=== PATIENT | male | born 1945 | race Caucasian/White ===

== ENCOUNTER 2024-01-28 18:58 | Observation (INO) ==
--- NOTE | 2024-01-28 19:50 | EKG ---
Test Reason : recent stroke/abd pain Blood Pressure : */* mmHG Vent. Rate : 65 BPM Atrial Rate : 65 BPM P-R Int : 196 ms QRS Dur : 82 ms QT Int : 406 ms P-R-T Axes : 30 36 58 degrees QTc Int : 422 ms Normal sinus rhythm Normal ECG No previous ECGs available Confirmed by Max Bateman MD ([id number]) on 01/30/2024 6:06:23 AM Referred By: Confirmed By: Max Bateman MD
[2024-01-28 20:10] LABS: BASOPHILS % (AUTO) 0.2 % (0.2-1.0); EOSINOPHILS % (AUTO) 0.3 % (0.9-2.9); HEMATOCRIT 43.8 % (42.0-54.0); HEMOGLOBIN 14.5 g/dL (13.5-18.0); LYMPHOCYTES # (AUTO) 1.8 X10^3/uL (1.3-2.9); LYMPHOCYTES % (AUTO) 12.7 % (21.0-51.0); MEAN CORPUSCULAR HEMOGLOBIN 29.8 pg (27.0-34.0); MEAN CORPUSCULAR VOLUME 90.2 fL (80.0-100.0); MEAN PLATELET VOLUME 8.9 fL (7.4-11.0); MONOCYTES # (AUTO) 1.1 x10^3/uL (0.3-0.8); MONOCYTES % (AUTO) 7.9 % (0.0-13.0); NEUTROPHILS # (AUTO) 11.4 x10^3/uL (2.2-4.8); NEUTROPHILS % (AUTO) 78.9 % (42.0-75.0); PLATELET COUNT 199 X10^3/uL (150.0-450.0); RED BLOOD COUNT 4.86 X10^6/uL (4.7-6.0); WHITE BLOOD COUNT 14.5 X10^3/uL (3.6-10.0)
[2024-01-28 20:13] LABS: INR 1.06 (0.8-1.3)
[2024-01-28 20:20] LABS: ALANINE AMINOTRANSFERASE 22 Units/L (12-78); ALBUMIN 3.7 g/dL (3.4-5.0); ALKALINE PHOSPHATASE 81 Units/L (46-116); ASPARTATE AMINO TRANSFERASE 19 Units/L (15-37); BLOOD UREA NITROGEN 21 mg/dL (7-18); CALCIUM 8.8 mg/dL (8.5-10.1); CARBON DIOXIDE 28.5 mmol/L (21-32); CHLORIDE 103 mmol/L (98-107); COR NA(FOR HYPERGLY) 138 mmol/L (136-145); CREATINE KINASE 73 Units/L (39-308); CREATININE 1.42 mg/dL (0.70-1.30); GLUCOSE 166 mg/dL (65-99); POTASSIUM 4.5 mmol/L (3.5-5.1); SODIUM 136 mmol/L (136-145); TOTAL PROTEIN 8.4 g/dL (6.4-8.2); eGFR NON BLACK RACES 51 (>60)
--- NOTE | 2024-01-28 20:51 | DR.WEAKNES ---
HPI <SEBASTIENJOVANI COLEEN Filed: 01/29/24 02:52> Time Seen Time Seen by Provider: 01/28/24 20:51 Primary Care Physician Primary Care Physician: SHAMA Complaints Chief Complaint:: C/O Weakness, Nausea with Difficulty Ambulating. Hx of Carotid Stenosis Self Treatment fo Chief Complaint: Went To ED Yesterday Source History Provided: Patient and Family Member Mode of Arrival Mode of Arrival: Wheelchair Timing Onset of Chief Complaint: 01/27/24 PMH <VAISHNAVIBRUCE COLEEN - Filed: 01/29/24 02:52> PMH Past Medical History: Yes Past Medical History: CVA Past Surgical History: No Family History History of Family Medical Conditions: Yes Family Medical History: [place], Coronary Artery Disease and Hypertension Social History Does patient currently use any type of tobacco product: No Type of Tobacco Use: None Infectious screening Have you traveled outside the country in the last 6 months?: No Isolation: Standard PE <SEBASTIENJOVANI COLEEN Filed: 01/29/24 02:52> Vital Signs Vitals: Vital Signs Temperature 97.8 F Pulse Rate 72 Pulse Rate 61 Pulse Rate 60 Pulse Rate 63 Pulse Rate 61 Pulse Rate 61 Pulse Rate 61 Pulse Rate 62 Pulse Rate 63 Pulse Rate 62 Pulse Rate 63 Pulse Rate 63 Pulse Rate 61 Pulse Rate 62 Pulse Rate 64 Pulse Rate 63 Pulse Rate 66 Pulse Rate 64 Pulse Rate 63 Pulse Rate 62 Pulse Rate 61 Pulse Rate 64 Pulse Rate 64 Pulse Rate 63 Pulse Rate 77 Pulse Rate 69 Pulse Rate 64 Pulse Rate 64 Pulse Rate 65 Pulse Rate 67 Pulse Rate 70 Pulse Rate 66 Pulse Rate 68 Respiratory Rate 21 Respiratory Rate 23 Respiratory Rate 19 Respiratory Rate 18 Respiratory Rate 18 Respiratory Rate 20 Respiratory Rate 16 Respiratory Rate 24 Respiratory Rate 20 Respiratory Rate 15 Respiratory Rate 19 Respiratory Rate 19 Respiratory Rate 16 Respiratory Rate 22 Respiratory Rate 16 Respiratory Rate 17 Respiratory Rate 16 Respiratory Rate 16 Respiratory Rate 30 Respiratory Rate 33 Respiratory Rate 25 Respiratory Rate 18 Respiratory Rate 27 Respiratory Rate 24 Respiratory Rate 26 Respiratory Rate 21 Respiratory Rate 24 Blood Pressure 162/78 Blood Pressure 156/74 Blood Pressure 146/70 Blood Pressure 188/88 Blood Pressure 170/79 Blood Pressure 185/79 Blood Pressure 166/74 Blood Pressure 166/74 Blood Pressure 166/74 Blood Pressure 166/74 Blood Pressure 183/86 Blood Pressure 179/81 Blood Pressure 179/80 Blood Pressure 195/81 Blood Pressure 168/77 Blood Pressure 166/79 O2 Sat by Pulse Oximetry 96 O2 Sat by Pulse Oximetry 97 O2 Sat by Pulse Oximetry 96 O2 Sat by Pulse Oximetry 98 O2 Sat by Pulse Oximetry 97 O2 Sat by Pulse Oximetry 97 O2 Sat by Pulse Oximetry 97 O2 Sat by Pulse Oximetry 98 <MAI YANEZ - Last Filed: 02/04/24 16:05> Vital Signs Vitals: Vital Signs Temperature 97.8 F Pulse Rate 72 Pulse Rate 61 Pulse Rate 60 Pulse Rate 63 Pulse Rate 61 Pulse Rate 61 Pulse Rate 61 Pulse Rate 62 Pulse Rate 63 Pulse Rate 62 Pulse Rate 63 Pulse Rate 63 Pulse Rate 61 Pulse Rate 62 Pulse Rate 64 Pulse Rate 63 Pulse Rate 66 Pulse Rate 64 Pulse Rate 63 Pulse Rate 62 Pulse Rate 61 Pulse Rate 64 Pulse Rate 64 Pulse Rate 63 Pulse Rate 77 Pulse Rate 69 Pulse Rate 64 Pulse Rate 64 Pulse Rate 65 Pulse Rate 67 Pulse Rate 70 Pulse Rate 66 Pulse Rate 68 Respiratory Rate 21 Respiratory Rate 23 Respiratory Rate 19 Respiratory Rate 18 Respiratory Rate 18 Respiratory Rate 20 Respiratory Rate 16 Respiratory Rate 24 Respiratory Rate 20 Respiratory Rate 15 Respiratory Rate 19 Respiratory Rate 19 Respiratory Rate 16 Respiratory Rate 22 Respiratory Rate 16 Respiratory Rate 17 Respiratory Rate 16 Respiratory Rate 16 Respiratory Rate 30 Respiratory Rate 33 Respiratory Rate 25 Respiratory Rate 18 Respiratory Rate 27 Respiratory Rate 24 Respiratory Rate 26 Respiratory Rate 21 Respiratory Rate 24 Blood Pressure 162/78 Blood Pressure 156/74 Blood Pressure 146/70 Blood Pressure 188/88 Blood Pressure 170/79 Blood Pressure 185/79 Blood Pressure 166/74 Blood Pressure 166/74 Blood Pressure 166/74 Blood Pressure 166/74 Blood Pressure 183/86 Blood Pressure 179/81 Blood Pressure 179/80 Blood Pressure 195/81 Blood Pressure 168/77 Blood Pressure 166/79 O2 Sat by Pulse Oximetry 96 O2 Sat by Pulse Oximetry 97 O2 Sat by Pulse Oximetry 96 O2 Sat by Pulse Oximetry 98 O2 Sat by Pulse Oximetry 97 O2 Sat by Pulse Oximetry 97 O2 Sat by Pulse Oximetry 97 O2 Sat by Pulse Oximetry 98 ROR <VALENTINE HORNE - Last Filed: 01/29/24 02:52> Labs Reviewed 01/31/24 04:54 01/31/24 04:54 Laboratory: WBC 14.5 X10^3/uL (3.6-10.0) H 01/28/24 20:00 RBC 4.86 X10^6/uL (4.7-6.0) 01/28/24 20:00 Hgb 14.5 g/dL (13.5-18.0) 01/28/24 20:00 Hct 43.8 % (42.0-54.0) 01/28/24 20:00 MCV 90.2 fL (80.0-100.0) 01/28/24 20:00 MCH 29.8 pg (27.0-34.0) 01/28/24 20:00 MCHC 33.0 g/dL (33.0-35.0) 01/28/24 20:00 RDW 14.0 % (11.6-16.5) 01/28/24 20:00 Plt Count 199 X10^3/uL (150.0-450.0) 01/28/24 20:00 MPV 8.9 fL (7.4-11.0) 01/28/24 20:00 Neut % (Auto) 78.9 % (42.0-75.0) H 01/28/24 20:00 Lymph % (Auto) 12.7 % (21.0-51.0) L 01/28/24 20:00 [place] % (Auto) 7.9 % (0.0-13.0) 01/28/24 20:00 Eos % (Auto) 0.3 % (0.9-2.9) L 01/28/24 20:00 Baso % (Auto) 0.2 % (0.2-1.0) 01/28/24 20:00 Neut # (Auto) 11.4 x10^3/uL (2.2-4.8) H 01/28/24 20:00 Lymph # (Auto) 1.8 X10^3/uL (1.3-2.9) 01/28/24 20:00 [place] # (Auto) 1.1 x10^3/uL (0.3-0.8) H 01/28/24 20:00 Eos # (Auto) 0.0 x10^3/uL (0.0-0.2) 01/28/24 20:00 Baso # (Auto) 0.0 X10^3/uL (0.0-0.1) 01/28/24 20:00 Absolute Nucleated RBC 0.1 /100WBC 01/28/24 20:00 PT 13.6 SECONDS (11.8-14.3) 01/28/24 20:00 INR Target Range - 01/28/24 20:00 INR 1.06 (0.8-1.3) 01/28/24 20:00 APTT 27.6 SECONDS (22.9-36.5) 01/28/24 20:00 PTT Comment - 01/28/24 20:00 D-Dimer 0.33 ug/ml (0.0-0.57) 01/28/24 20:00 Sodium 136 mmol/L (136-145) 01/28/24 20:00 Corrected Sodium 138 mmol/L (136-145) 01/28/24 20:00 Potassium 4.5 mmol/L (3.5-5.1) 01/28/24 20:00 Chloride 103 mmol/L (98-107) 01/28/24 20:00 Carbon Dioxide 28.5 mmol/L (21-32) 01/28/24 20:00 BUN 21 mg/dL (7-18) H 01/28/24 20:00 Creatinine 1.42 mg/dL (0.70-1.30) H 01/28/24 20:00 Est GFR (MDRD) Af Amer > 60 (>60) 01/28/24 20:00 Est GFR (MDRD) Non-Af 51 (>60) L 01/28/24 20:00 Glucose 166 mg/dL (65-99) H 01/28/24 20:00 Calcium 8.8 mg/dL (8.5-10.1) 01/28/24 20:00 Corrected Calcium TNP 01/28/24 20:00 Total Bilirubin 0.30 mg/dL (0.2-1.0) 01/28/24 20:00 AST 19 Units/L (15-37) 01/28/24 20:00 ALT 22 Units/L (12-78) 01/28/24 20:00 Alkaline Phosphatase 81 Units/L (46-116) 01/28/24 20:00 Creatine Kinase 73 Units/L (39-308) 01/28/24 20:00 Troponin I High Sens 8.3 ng/L (4.0-60.0) 01/28/24 20:00 B-Natriuretic Peptide 146 pg/mL (0-79) H 01/28/24 20:00 Total Protein 8.4 g/dL (6.4-8.2) H 01/28/24 20:00 Albumin 3.7 g/dL (3.4-5.0) 01/28/24 20:00 Globulin 4.7 g/dL (2.5-4.5) H 01/28/24 20:00 Albumin/Globulin Ratio 0.8 Ratio (1.1-2.1) L 01/28/24 20:00 Specimen Type Clean catch urine 01/28/24 22:52 Urine Color Yellow (YELLOW) 01/28/24 22:52 Urine Appearance Clear (CLEAR) 01/28/24 22:52 Urine pH 6.0 (5.0 - 8.0) 01/28/24 22:52 Ur Specific [place] 1.015 (1.000-1.030) 01/28/24 22:52 Urine Protein Negative (NEGATIVE) 01/28/24 22:52 Urine Glucose (UA) Negative (NEGATIVE) 01/28/24 22:52 Urine Ketones Negative (NEGATIVE) 01/28/24 22:52 Urine Blood Negative (NEGATIVE) 01/28/24 22:52 Urine Nitrite Negative (NEGATIVE) 01/28/24 22:52 Urine Bilirubin Negative (NEGATIVE) 01/28/24 22:52 Urine Urobilinogen Normal (NORMAL) 01/28/24 22:52 Ur Leukocyte Esterase 1+ (NEGATIVE) 01/28/24 22:52 Urine RBC None seen /HPF (0-3) 01/28/24 22:52 Urine WBC 0-2 /HPF (0-5) 01/28/24 22:52 Ur Squamous Epith Cells Rare /HPF (NEGATIVE) 01/28/24 22:52 Urine Bacteria Negative /HPF (NEGATIVE) 01/28/24 22:52 Ur Culture Indicated? No/not indicated 01/28/24 22:52 <MAI RENATA - Last Filed: 02/04/24 16:05> Labs Reviewed Laboratory: WBC 14.5 X10^3/uL (3.6-10.0) H 01/28/24 20:00 RBC 4.86 X10^6/uL (4.7-6.0) 01/28/24 20:00 Hgb 14.5 g/dL (13.5-18.0) 01/28/24 20:00 Hct 43.8 % (42.0-54.0) 01/28/24 20:00 MCV 90.2 fL (80.0-100.0) 01/28/24 20:00 MCH 29.8 pg (27.0-34.0) 01/28/24 20:00 MCHC 33.0 g/dL (33.0-35.0) 01/28/24 20:00 RDW 14.0 % (11.6-16.5) 01/28/24 20:00 Plt Count 199 X10^3/uL (150.0-450.0) 01/28/24 20:00 MPV 8.9 fL (7.4-11.0) 01/28/24 20:00 Neut % (Auto) 78.9 % (42.0-75.0) H 01/28/24 20:00 Lymph % (Auto) 12.7 % (21.0-51.0) L 01/28/24 20:00 [place] % (Auto) 7.9 % (0.0-13.0) 01/28/24 20:00 Eos % (Auto) 0.3 % (0.9-2.9) L 01/28/24 20:00 Baso % (Auto) 0.2 % (0.2-1.0) 01/28/24 20:00 Neut # (Auto) 11.4 x10^3/uL (2.2-4.8) H 01/28/24 20:00 Lymph # (Auto) 1.8 X10^3/uL (1.3-2.9) 01/28/24 20:00 [place] # (Auto) 1.1 x10^3/uL (0.3-0.8) H 01/28/24 20:00 Eos # (Auto) 0.0 x10^3/uL (0.0-0.2) 01/28/24 20:00 Baso # (Auto) 0.0 X10^3/uL (0.0-0.1) 01/28/24 20:00 Absolute Nucleated RBC 0.1 /100WBC 01/28/24 20:00 PT 13.6 SECONDS (11.8-14.3) 01/28/24 20:00 INR Target Range - 01/28/24 20:00 INR 1.06 (0.8-1.3) 01/28/24 20:00 APTT 27.6 SECONDS (22.9-36.5) 01/28/24 20:00 PTT Comment - 01/28/24 20:00 D-Dimer 0.33 ug/ml (0.0-0.57) 01/28/24 20:00 Sodium 136 mmol/L (136-145) 01/28/24 20:00 Corrected Sodium 138 mmol/L (136-145) 01/28/24 20:00 Potassium 4.5 mmol/L (3.5-5.1) 01/28/24 20:00 Chloride 103 mmol/L (98-107) 01/28/24 20:00 Carbon Dioxide 28.5 mmol/L (21-32) 01/28/24 20:00 BUN 21 mg/dL (7-18) H 01/28/24 20:00 Creatinine 1.42 mg/dL (0.70-1.30) H 01/28/24 20:00 Est GFR (MDRD) Af Amer > 60 (>60) 01/28/24 20:00 Est GFR (MDRD) Non-Af 51 (>60) L 01/28/24 20:00 Glucose 166 mg/dL (65-99) H 01/28/24 20:00 Calcium 8.8 mg/dL (8.5-10.1) 01/28/24 20:00 Corrected Calcium TNP 01/28/24 20:00 Total Bilirubin 0.30 mg/dL (0.2-1.0) 01/28/24 20:00 AST 19 Units/L (15-37) 01/28/24 20:00 ALT 22 Units/L (12-78) 01/28/24 20:00 Alkaline Phosphatase 81 Units/L (46-116) 01/28/24 20:00 Creatine Kinase 73 Units/L (39-308) 01/28/24 20:00 Troponin I High Sens 8.3 ng/L (4.0-60.0) 01/28/24 20:00 B-Natriuretic Peptide 146 pg/mL (0-79) H 01/28/24 20:00 Total Protein 8.4 g/dL (6.4-8.2) H 01/28/24 20:00 Albumin 3.7 g/dL (3.4-5.0) 01/28/24 20:00 Globulin 4.7 g/dL (2.5-4.5) H 01/28/24 20:00 Albumin/Globulin Ratio 0.8 Ratio (1.1-2.1) L 01/28/24 20:00 Specimen Type Clean catch urine 01/28/24 22:52 Urine Color Yellow (YELLOW) 01/28/24 22:52 Urine Appearance Clear (CLEAR) 01/28/24 22:52 Urine pH 6.0 (5.0 - 8.0) 01/28/24 22:52 Ur Specific [place] 1.015 (1.000-1.030) 01/28/24 22:52 Urine Protein Negative (NEGATIVE) 01/28/24 22:52 Urine Glucose (UA) Negative (NEGATIVE) 01/28/24 22:52 Urine Ketones Negative (NEGATIVE) 01/28/24 22:52 Urine Blood Negative (NEGATIVE) 01/28/24 22:52 Urine Nitrite Negative (NEGATIVE) 01/28/24 22:52 Urine Bilirubin Negative (NEGATIVE) 01/28/24 22:52 Urine Urobilinogen Normal (NORMAL) 01/28/24 22:52 Ur Leukocyte Esterase 1+ (NEGATIVE) 01/28/24 22:52 Urine RBC None seen /HPF (0-3) 01/28/24 22:52 Urine WBC 0-2 /HPF (0-5) 01/28/24 22:52 Ur Squamous Epith Cells Rare /HPF (NEGATIVE) 01/28/24 22:52 Urine Bacteria Negative /HPF (NEGATIVE) 01/28/24 22:52 Ur Culture Indicated? No/not indicated 01/28/24 22:52 Opioid <VALENTINE HORNE - Last Filed: 01/29/24 02:52> Opioid Risk Tool Total: 0 Total Score Risk Category: Low Risk Copyright: Ian ALTAMIRANO predicting aberrant behaviors <MAI YANEZ - Last Filed: 02/04/24 16:05> Opioid Risk Tool Total: 0 Total Score Risk Category: Low Risk Discharge Plan Diagnosis Discharge Problem: Weakness generalized, Nausea & vomiting, Acute dehydration Discharge Plan Patient Disposition: 09 ADMITTED INPATIENT Condition: Stable
[2024-01-28 23:05] LABS: BILIRUBIN,URINE NEGATIVE (NEGATIVE); BLOOD/HEMOGLOBIN,URINE NEGATIVE (NEGATIVE); GLUCOSE, URINE NEGATIVE (NEGATIVE); KETONES,URINE NEGATIVE (NEGATIVE); LEUKOCYTE ESTERASE ,URINE 1+ (NEGATIVE); NITRITES,URINE NEGATIVE (NEGATIVE); PROTEIN,URINE NEGATIVE (NEGATIVE); UROBILINOGEN,URINE NORMAL (NORMAL)
[2024-01-28 23:09] LABS: APPEARANCE,URINE CLEAR (CLEAR); COLOR,URINE YELLOW (YELLOW); RBC,URINE NONE SEEN /HPF (0-3)
[2024-01-28 23:10] LABS: BACTERIA,URINE NEGATIVE /HPF (NEGATIVE); SQUAMOUS EPITHELIAL CELL,UR RARE /HPF (NEGATIVE)
--- NOTE | 2024-01-29 01:16 | CT ---
EXAM:CT ABDOMEN AND PELVIS WITH CONTRASTHISTORY:C/O Weakness, Nausea with Difficulty Ambulating. ; CVACOMPARISON:NoneTECHNIQUE:Axial images were acquired of the abdomen and pelvis with IV contrast. Sagittal and coronal reformatted images were provided. All images were reviewed in a variety of windows and levels.RADIATION REDUCTION TECHNIQUE: Automated exposure control, adjustment of the mA and/or kV according to patient size, or iterative reconstruction techniques were used.FINDINGS:LOWER THORAX: The visualized lower lung zones demonstrate mild bibasilar subsegmental atelectasis. There are numerous calcifications in the mediastinal and hilar region indicative of old granulomatous disease. The heart size is within normal limits. There is no evidence of a pericardial effusion. Coronary artery and mitral annulus calcification.LIVER: No intrahepatic focal lesions are seen. No evidence of intrahepatic or extrahepatic duct dilation.GALLBLADDER: The gallbladder is unremarkable.SPLEEN: The spleen enhances homogenously and is unremarkable.PANCREAS: The pancreas enhances homogenously and is unremarkable.ADRENAL GLANDS: The adrenal glands enhance homogenously and are unremarkable.: The kidneys enhance homogenously. Their collecting system is of normal caliber.URINARY BLADDER: The urinary bladder is unremarkable. There are no soft tissue masses seen in the urinary bladder.VESSELS: The abdominal aorta is normal in size without evidence of aneurysm or dissection. The celiac artery, superior mesenteric artery, ka[place]ab renal arteries, and inferior mesenteric artery are patent.GI: Large hiatal hernia. Small bowel is unremarkable. There are no inflammatory changes seen in the right lower quadrant to suggest secondary signs of acute appendicitis. Normal appendix right lower quadrant.LYMPHNODES AND MESENTERY: There is no evidence of retroperitoneal lymphadenopathy. Prostate gland is mildly enlarged. There are small bilateral fat containing inguinal hernias.BONES: The visualized bones demonstrate degenerative changes. There are no concerning lytic or blastic lesions identified.IMPRESSION:Large hiatal hernia.Mild bibasilar subsegmental atelectasis.Evidence of prior granulomatous disease.Mild prostate gland hypertrophy.Small bilateral fat containing inguinal hernias.No acute abdominal or pelvic pathologyTHIS IS AN ELECTRONICALLY VERIFIED FINAL REPORT01/29/2024 1:13 AM - Electronically signed by Tc Braun MD
[2024-01-29] MEDS ORDERED: ZOFRAN INJ 4 MG VIAL IVP PRN (02:02)
[2024-01-29 03:15] VITALS: BMI 32.5
[2024-01-29] MEDS: PEPCID 20 MG VIAL 20 MG in NS 50 ML IV 50 ML IV SCH (03:17)
[2024-01-29] MEDS: NS 1,000 ML IV 1,000 ML IV SCH (03:21)
[2024-01-29 05:29] LABS: BASOPHILS % (AUTO) 0.3 % (0.2-1.0); EOSINOPHILS # (AUTO) 0.2 x10^3/uL (0.0-0.2); EOSINOPHILS % (AUTO) 1.9 % (0.9-2.9); HEMATOCRIT 41.5 % (42.0-54.0); LYMPHOCYTES # (AUTO) 2.8 X10^3/uL (1.3-2.9); LYMPHOCYTES % (AUTO) 21.7 % (21.0-51.0); MEAN CORPUSCULAR HGB CONC 33.6 g/dL (33.0-35.0); MEAN CORPUSCULAR VOLUME 89.1 fL (80.0-100.0); MEAN PLATELET VOLUME 9.8 fL (7.4-11.0); MONOCYTES # (AUTO) 1.1 x10^3/uL (0.3-0.8); NEUTROPHILS # (AUTO) 8.5 x10^3/uL (2.2-4.8); NEUTROPHILS % (AUTO) 67.1 % (42.0-75.0); PLATELET COUNT 121 X10^3/uL (150.0-450.0); RED BLOOD COUNT 4.66 X10^6/uL (4.7-6.0); WHITE BLOOD COUNT 12.7 X10^3/uL (3.6-10.0)
[2024-01-29 05:37] LABS: ALANINE AMINOTRANSFERASE 18 Units/L (12-78); ALBUMIN 3.1 g/dL (3.4-5.0); ALKALINE PHOSPHATASE 66 Units/L (46-116); ASPARTATE AMINO TRANSFERASE 28 Units/L (15-37); BLOOD UREA NITROGEN 19 mg/dL (7-18); CALCIUM 8.4 mg/dL (8.5-10.1); CHLORIDE 104 mmol/L (98-107); COR CA(FOR HYPOALB) 9.1 mg/dL (8.5-10.1); COR NA(FOR HYPERGLY) 141 mmol/L (136-145); CREATININE 1.23 mg/dL (0.70-1.30); GLUCOSE 122 mg/dL (65-99); MAGNESIUM 1.9 mg/dL (2.0-2.9); POTASSIUM 4.5 mmol/L (3.5-5.1); SODIUM 140 mmol/L (136-145); eGFR NON BLACK RACES > 60 (>60)
[2024-01-29] MEDS ORDERED: CONSULT PHARMACY - POTASSIUM & MAGNESIUM XX SCH (07:00)
--- NOTE | 2024-01-29 08:03 | RAD ---
EXAM:CHEST, 1 VIEWHISTORY:C/O Weakness, Nausea with Difficulty Ambulating. Hx of Carotid Stenosis;COMPARISON:No relevant prior studies were available for comparison at the time of interpretation.TECHNIQUE:CHEST, 1 VIEWFINDINGS:Chest:Lines and tubes: Cardiac leads overlie the chest.Mediastinum: Cardiomegaly.Pulmonary vessels: No pulmonary vascular congestion.Lung patterson: No suspicious airspace opacity.Pleura: No effusion. No pneumothorax.Bones and soft tissues: No acute osseous or soft tissue abnormality.IMPRESSION:1. Cardiomegaly of uncertain etiologyTHIS IS AN ELECTRONICALLY VERIFIED FINAL REPORT01/29/2024 8:00 AM - Electronically signed by Jose E Cordero MD
[2024-01-29] MEDS: MAG-OX TAB PO SCH (08:42)
[2024-01-29] MEDS: SYNTHROID 50 mcg TAB PO SCH (08:42)
[2024-01-29] MEDS: CRESTOR TAB 10 MG PO SCH (08:42)
[2024-01-29] MEDS: PLAVIX PO SCH (08:43)
[2024-01-29] MEDS: NORVASC TAB 5 MG PO SCH (08:43)
[2024-01-29] MEDS ORDERED: VIT C E ZN COPPR LUTEIN ZEAXAN PO SCH (09:00)
[2024-01-29] MEDS ORDERED: [UNRECOGNIZED DRUG - OTHER] PO SCH (09:00)
[2024-01-29] MEDS: LOVENOX INJ 40 MG SYR SC SCH (10:51)
--- NOTE | 2024-01-29 17:22 | DR.H&P ---
H&P History & Physical for Day of: H&P Date: 01/28/24 Chief Complaint Chief Complaint: WEAKNESS, SOB History of Present Illness History of Present Illness: PT IS 78 WM, ER ADMISSION AFTER PRESENTING WITH CO DIFFUSE WEAKNESS AND SOB. PT CO NAUSE AND ABDOMINAL PAIN. PT REPORTS CONSTIPATION RECENTLY AND POOR APPETITE. PT MARCI ANY VISIBLE BLOOD IN STOOL. PT REPORT HE HAD A CVA ABOUT ONE WEEK AGO AND WAS SEEN AT [facility] IN [place]. PT REPORTS HE IS ON BP MEDICATION AND PLAVIX AND HAD BEEN TAKING MEDICATION PRESCRIBED. PT DENIES ANY CHEST PAIN BUT CO WEAKNESS AND SOB WORSE ON EXERTION. PT ADMITTED FOR TREATMENT AND EVALUATION OF ACUTE ILLNESS. Past Medical History Past Medical History: CVA Family History Family Medical History: Cancer and [place] Social History Does patient currently use any type of tobacco product: No Type of Tobacco Use: None Does any household member use tobacco: No Alcohol Use: None Drug Use: None Medications Home Medications: Home Medications Medication Instructions Recorded Confirmed Type amlodipine 5 mg tablet 5 mg PO DAILY 01/29/24 01/29/24 History aspirin 81 mg tablet,delayed 81 mg PO DAILY 01/29/24 01/29/24 History release clopidogrel 75 mg tablet (Plavix) 75 mg PO DAILY 01/29/24 01/29/24 History diclofenac sodium 75 mg 75 mg PO DAILY PRN 01/29/24 01/29/24 History tablet,delayed release hydroxyzine HCl 25 mg tablet 25 mg PO TID PRN 01/29/24 01/29/24 History levothyroxine 50 mcg capsule 50 mcg PO AC 01/29/24 01/29/24 History loratadine 10 mg tablet 10 mg PO DAILY 01/29/24 01/29/24 History rosuvastatin 10 mg tablet 10 mg PO DAILY 01/29/24 01/29/24 History vit C 250 mg-vit E 90 mg-zinc 40 1 cap PO DAILY 01/29/24 01/29/24 History mg-copper 1 [id number] capsule (PreserVision AREDS-2) Allergies Allergies Allergy/AdvReac Type Severity Reaction Status Date / Time No Known Allergies Allergy Verified 01/28/24 19:39 Labs 01/29/24 04:15 01/29/24 04:15 Labs: Laboratory WBC 12.7 X10^3/uL (3.6-10.0) H 01/29/24 04:15 RBC 4.66 X10^6/uL (4.7-6.0) L 01/29/24 04:15 Hgb 14.0 g/dL (13.5-18.0) 01/29/24 04:15 Hct 41.5 % (42.0-54.0) L 01/29/24 04:15 MCV 89.1 fL (80.0-100.0) 01/29/24 04:15 MCH 30.0 pg (27.0-34.0) 01/29/24 04:15 MCHC 33.6 g/dL (33.0-35.0) 01/29/24 04:15 RDW 14.0 % (11.6-16.5) 01/29/24 04:15 Plt Count 121 X10^3/uL (150.0-450.0) L 01/29/24 04:15 MPV 9.8 fL (7.4-11.0) 01/29/24 04:15 Neut % (Auto) 67.1 % (42.0-75.0) 01/29/24 04:15 Lymph % (Auto) 21.7 % (21.0-51.0) 01/29/24 04:15 [place] % (Auto) 9.0 % (0.0-13.0) 01/29/24 04:15 Eos % (Auto) 1.9 % (0.9-2.9) 01/29/24 04:15 Baso % (Auto) 0.3 % (0.2-1.0) 01/29/24 04:15 Neut # (Auto) 8.5 x10^3/uL (2.2-4.8) H 01/29/24 04:15 Lymph # (Auto) 2.8 X10^3/uL (1.3-2.9) 01/29/24 04:15 [place] # (Auto) 1.1 x10^3/uL (0.3-0.8) H 01/29/24 04:15 Eos # (Auto) 0.2 x10^3/uL (0.0-0.2) 01/29/24 04:15 Baso # (Auto) 0.0 X10^3/uL (0.0-0.1) 01/29/24 04:15 Absolute Nucleated RBC 0.2 /100WBC 01/29/24 04:15 PT 13.6 SECONDS (11.8-14.3) 01/28/24 20:00 INR Target Range - 01/28/24 20:00 INR 1.06 (0.8-1.3) 01/28/24 20:00 APTT 27.6 SECONDS (22.9-36.5) 01/28/24 20:00 PTT Comment - 01/28/24 20:00 D-Dimer 0.33 ug/ml (0.0-0.57) 01/28/24 20:00 Sodium 140 mmol/L (136-145) 01/29/24 04:15 Corrected Sodium 141 mmol/L (136-145) 01/29/24 04:15 Potassium 4.5 mmol/L (3.5-5.1) 01/29/24 04:15 Chloride 104 mmol/L (98-107) 01/29/24 04:15 Carbon Dioxide 26.0 mmol/L (21-32) 01/29/24 04:15 BUN 19 mg/dL (7-18) H 01/29/24 04:15 Creatinine 1.23 mg/dL (0.70-1.30) 01/29/24 04:15 Est GFR (MDRD) Af Amer > 60 (>60) 01/29/24 04:15 Est GFR (MDRD) Non-Af > 60 (>60) 01/29/24 04:15 Glucose 122 mg/dL (65-99) H 01/29/24 04:15 Calcium 8.4 mg/dL (8.5-10.1) L 01/29/24 04:15 Corrected Calcium 9.1 mg/dL (8.5-10.1) 01/29/24 04:15 Magnesium 1.9 mg/dL (2.0-2.9) L 01/29/24 04:15 Total Bilirubin 0.50 mg/dL (0.2-1.0) 01/29/24 04:15 AST 28 Units/L (15-37) 01/29/24 04:15 ALT 18 Units/L (12-78) 01/29/24 04:15 Alkaline Phosphatase 66 Units/L (46-116) 01/29/24 04:15 Creatine Kinase 73 Units/L (39-308) 01/28/24 20:00 Troponin I High Sens 8.3 ng/L (4.0-60.0) 01/28/24 20:00 B-Natriuretic Peptide 146 pg/mL (0-79) H 01/28/24 20:00 Total Protein 7.0 g/dL (6.4-8.2) 01/29/24 04:15 Albumin 3.1 g/dL (3.4-5.0) L 01/29/24 04:15 Globulin 3.9 g/dL (2.5-4.5) 01/29/24 04:15 Albumin/Globulin Ratio 0.8 Ratio (1.1-2.1) L 01/29/24 04:15 Specimen Type Clean catch urine 01/28/24 22:52 Urine Color Yellow (YELLOW) 01/28/24 22:52 Urine Appearance Clear (CLEAR) 01/28/24 22:52 Urine pH 6.0 (5.0 - 8.0) 01/28/24 22:52 Ur Specific [place] 1.015 (1.000-1.030) 01/28/24 22:52 Urine Protein Negative (NEGATIVE) 01/28/24 22:52 Urine Glucose (UA) Negative (NEGATIVE) 01/28/24 22:52 Urine Ketones Negative (NEGATIVE) 01/28/24 22:52 Urine Blood Negative (NEGATIVE) 01/28/24 22:52 Urine Nitrite Negative (NEGATIVE) 01/28/24 22:52 Urine Bilirubin Negative (NEGATIVE) 01/28/24 22:52 Urine Urobilinogen Normal (NORMAL) 01/28/24 22:52 Ur Leukocyte Esterase 1+ (NEGATIVE) 01/28/24 22:52 Urine RBC None seen /HPF (0-3) 01/28/24 22:52 Urine WBC 0-2 /HPF (0-5) 01/28/24 22:52 Ur Squamous Epith Cells Rare /HPF (NEGATIVE) 01/28/24 22:52 Urine Bacteria Negative /HPF (NEGATIVE) 01/28/24 22:52 Ur Culture Indicated? No/not indicated 01/28/24 22:52 Review of Systems Constitutional: Weakness and Malaise Eyes: No Symptoms Reported ENT: No Symptoms Reported Respiratory: SOB with Excertion Cardiovascular: No Symptoms Reported Gastrointestinal: Nausea, Abdominal Pain and Constipation Genitourinary: No Symptoms Reported Musculoskeletal: Back Pain Skin: No Symptoms Reported Neurological: Weakness (MILD DIFFUSE) Physical Exam Vital Signs: Vital Signs Temperature 98.3 F Pulse Rate 61 Pulse Rate 67 Pulse Rate 73 Pulse Rate 64 Pulse Rate 63 Pulse Rate 57 Pulse Rate 58 Pulse Rate 63 Pulse Rate 62 Pulse Rate 59 Pulse Rate 66 Pulse Rate 60 Pulse Rate 59 Pulse Rate 60 Pulse Rate 61 Pulse Rate 66 Pulse Rate 60 Pulse Rate 58 Pulse Rate 60 Pulse Rate 64 Pulse Rate 60 Pulse Rate 59 Pulse Rate 62 Pulse Rate 57 Pulse Rate 57 Pulse Rate 57 Pulse Rate 67 Pulse Rate 60 Respiratory Rate 15 Respiratory Rate 18 Respiratory Rate 38 Respiratory Rate 16 Respiratory Rate 13 Respiratory Rate 12 Respiratory Rate 13 Respiratory Rate 13 Respiratory Rate 14 Respiratory Rate 13 Respiratory Rate 20 Respiratory Rate 13 Respiratory Rate 15 Respiratory Rate 17 Respiratory Rate 18 Respiratory Rate 27 Respiratory Rate 19 Respiratory Rate 14 Respiratory Rate 20 Respiratory Rate 22 Respiratory Rate 19 Respiratory Rate 18 Respiratory Rate 22 Respiratory Rate 14 Respiratory Rate 12 Respiratory Rate 14 Respiratory Rate 30 Respiratory Rate 13 Blood Pressure 161/70 Blood Pressure 159/72 O2 Sat by Pulse Oximetry 97 O2 Sat by Pulse Oximetry 98 O2 Sat by Pulse Oximetry 95 O2 Sat by Pulse Oximetry 97 O2 Sat by Pulse Oximetry 95 O2 Sat by Pulse Oximetry 96 O2 Sat by Pulse Oximetry 95 O2 Sat by Pulse Oximetry 97 O2 Sat by Pulse Oximetry 96 O2 Sat by Pulse Oximetry 96 O2 Sat by Pulse Oximetry 96 O2 Sat by Pulse Oximetry 96 O2 Sat by Pulse Oximetry 96 O2 Sat by Pulse Oximetry 97 O2 Sat by Pulse Oximetry 98 O2 Sat by Pulse Oximetry 97 O2 Sat by Pulse Oximetry 97 O2 Sat by Pulse Oximetry 97 O2 Sat by Pulse Oximetry 97 O2 Sat by Pulse Oximetry 98 O2 Sat by Pulse Oximetry 97 O2 Sat by Pulse Oximetry 97 O2 Sat by Pulse Oximetry 97 O2 Sat by Pulse Oximetry 96 O2 Sat by Pulse Oximetry 97 O2 Sat by Pulse Oximetry 97 O2 Sat by Pulse Oximetry 96 O2 Sat by Pulse Oximetry 98 Oriented: Normal Eyes: Normal Nose: Normal Throat: Dry Respiratory: Diminished Throughout Cardiovascular: Normal Auscultation: Bowel Sounds: Decreased Tenderness: Epigastric and Mild Musculoskeletal: Motor Deficit Psychiatric: Normal Mood Description: Calm Speech Pattern: Appropriate and Slurred (MILDLY SLURRED, DUE TO MISSING DENTURES/TEETH) Assessment/Plan (1) Weakness generalized: Narrative Support Text: IV HYDRATION, CT ABD PELVIS ON ADMISSION VERIFY HOME MEDICATION CXR ON ADMISSION BP CONTROL, CE AND EKG ON ADMISSION PHYSICAL THERAPY CONSULT Status: Acute (2) Nausea & vomiting: Status: Acute (3) Acute dehydration: Status: Acute (4) Hyperlipidemia: Status: Acute (5) History of CVA (cerebrovascular accident): Status: Acute
[2024-01-30 05:03] LABS: BASOPHILS # (AUTO) 0.1 X10^3/uL (0.0-0.1); EOSINOPHILS # (AUTO) 0.4 x10^3/uL (0.0-0.2); EOSINOPHILS % (AUTO) 5.2 % (0.9-2.9); HEMATOCRIT 39.3 % (42.0-54.0); HEMOGLOBIN 13.1 g/dL (13.5-18.0); LYMPHOCYTES # (AUTO) 2.5 X10^3/uL (1.3-2.9); LYMPHOCYTES % (AUTO) 31.5 % (21.0-51.0); MEAN CORPUSCULAR HGB CONC 33.4 g/dL (33.0-35.0); MEAN CORPUSCULAR VOLUME 89.9 fL (80.0-100.0); MEAN PLATELET VOLUME 9.4 fL (7.4-11.0); MONOCYTES % (AUTO) 12.5 % (0.0-13.0); NEUTROPHILS % (AUTO) 49.8 % (42.0-75.0); PLATELET COUNT 181 X10^3/uL (150.0-450.0); RED BLOOD COUNT 4.37 X10^6/uL (4.7-6.0); RED CELL DISTRIBUTION WIDTH 14.2 % (11.6-16.5)
[2024-01-30 05:10] LABS: ALANINE AMINOTRANSFERASE 21 Units/L (12-78); ALKALINE PHOSPHATASE 72 Units/L (46-116); ASPARTATE AMINO TRANSFERASE 22 Units/L (15-37); BLOOD UREA NITROGEN 19 mg/dL (7-18); CALCIUM 8.1 mg/dL (8.5-10.1); CARBON DIOXIDE 30.4 mmol/L (21-32); CHLORIDE 105 mmol/L (98-107); CHOL/HDL RATIO 2.9 (0.0-5.0); CHOLESTEROL 115 mg/dL (0-200); COR CA(FOR HYPOALB) 8.9 mg/dL (8.5-10.1); COR NA(FOR HYPERGLY) 142 mmol/L (136-145); CREATININE 1.29 mg/dL (0.70-1.30); GLUCOSE 123 mg/dL (65-99); HDL CHOLESTEROL 39 mg/dL (40-60); SODIUM 141 mmol/L (136-145); TOTAL PROTEIN 6.9 g/dL (6.4-8.2); TRIGLYCERIDES 131 mg/dL (0-150); eGFR NON BLACK RACES 57 (>60)
--- NOTE | 2024-01-30 07:29 | RAD ---
EXAM:CHEST, 1 VIEWHISTORY:Shortness of breathCOMPARISON:01/28/2024FINDINGS:The trachea is midline. The cardiac silhouette is enlarged with a tortuous thoracic aorta . The lungs are clear without focal infiltrate or effusion. The bony thorax is unremarkable.IMPRESSION:No acute cardiopulmonary disease.THIS IS AN ELECTRONICALLY VERIFIED FINAL REPORT01/30/2024 7:26 AM - Electronically signed by Mariano Kirkland MD
[2024-01-30] MEDS: LASIX IVP ONE (12:30)
[2024-01-30] MEDS: LASIX ONE (13:50)
--- NOTE | 2024-01-30 14:03 | CT ---
EXAM: BRAIN W/O CON HISTORY: ams; CVA, HTN COMPARISON: MRI brain 01/16/2024 TECHNIQUE: Multiple CT axial images of the brain were obtained without IV contrast. Coronal and sagittal images were reconstructed. Dose reduction techniques included Automated Exposure Control (AEC) and adjustme nt of mA and kV. FINDINGS: Low-density in the medial left thalamus correlates with the ischemic areas seen on the MRI. Low-dens ity area in the medial right occipital lobe correlates with the acute ischemia seen on MRI. There is a new area of low-density in the anterior superior left cerebellar hemisphere which was not present previously. This may be a new infarct. It measures about 2.5 cm. This lies adjacent to an o ld infarct in the left cerebellar hemisphere. There is an old infarct in the inferior right occipital lobe. There is no hemorrhage, mass, or midline shift. Cerebellar tonsils are at an appropriate level. No fluid in the sinuses or mucosal thickening to suggest sinusitis. There is no mastoid effusion. IMPRESSION: 1. New findings suggesting left cerebellar acute infarct 2. Usual evolution of previously identified infarcts in the medial right occipital lobe and left thal amus 3. No hemorrhage or significant mass effect THIS IS AN ELECTRONICALLY VERIFIED FINAL REPORT 01/30/2024 1:43 PM - Electronically signed by aDvi Kuhn MD
[2024-01-30] MEDS ORDERED: ZADITOR EYE DROPS EACHEYE PRN (14:08)
--- NOTE | 2024-01-30 22:57 | CT ---
EXAM: CAROTID CTA HISTORY: AMS; AMS, HTN, HX CVA COMPARISON: None. TECHNIQUE: Following the intravenous administration of iodinated contrast, spiral CT imaging was performed throu gh the neck and axial, coronal, and sagittal CT images were generated. Multi planar 3D MIP images wer e also generated. FINDINGS: Aortic arch measures 3.4 cm in diameter. There is a bovine origin. There is no disease at the origi ns of the great vessels. Right carotid: Heavy calcified plaque in the carotid bulb and proximal ICA. This causes a proximally a 48% stenosis. There is no poststenotic dilation. There is no ulceration. Left carotid: Heterogeneous plaque in the carotid bulb and proximal ICA but no flow-limiting stenosis and ulceration. Left vertebral artery: No disease proximally. There is a area focal calcified plaque prior to entry into the C7 vascular foramen but no flow-limiting stenosis. The vertebral artery is otherwise normal . The intracranial portion of the vertebral artery is normal and the basilar artery is normal. Ther e appears to be some retrograde filling of the small and feeble right vertebral artery: Right vertebral artery: No flow proximally. Retrograde filling from the basilar. Intracranially: VIV, left MCA, and visible THERAPEUTIC ASSISTANT are grossly normal. There is some low-grade narrowing in the horizontal segment of the right MCA. Proximal branch of the right MCA is also feeble. IMPRESSION: 1. A proximally 48% stenosis in the right carotid bulb and ICA. 2. 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 3. Poorly defined area of narrowing in the horizontal segment of the right MCA and the anterior branc h of the right MCA. THIS IS AN ELECTRONICALLY VERIFIED FINAL REPORT 01/30/2024 10:54 PM - Electronically signed by Shravan Martinez MD
[2024-01-31 05:26] LABS: BASOPHILS # (AUTO) 0.1 X10^3/uL (0.0-0.1); BASOPHILS % (AUTO) 0.6 % (0.2-1.0); EOSINOPHILS # (AUTO) 0.5 x10^3/uL (0.0-0.2); HEMATOCRIT 41.5 % (42.0-54.0); LYMPHOCYTES # (AUTO) 2.7 X10^3/uL (1.3-2.9); LYMPHOCYTES % (AUTO) 27.1 % (21.0-51.0); MEAN CORPUSCULAR HGB CONC 33.6 g/dL (33.0-35.0); MEAN CORPUSCULAR VOLUME 89.2 fL (80.0-100.0); MONOCYTES # (AUTO) 1.2 x10^3/uL (0.3-0.8); MONOCYTES % (AUTO) 11.8 % (0.0-13.0); NEUTROPHILS # (AUTO) 5.5 x10^3/uL (2.2-4.8); NEUTROPHILS % (AUTO) 55.5 % (42.0-75.0); PLATELET COUNT 195 X10^3/uL (150.0-450.0); RED BLOOD COUNT 4.66 X10^6/uL (4.7-6.0); RED CELL DISTRIBUTION WIDTH 14.1 % (11.6-16.5)
[2024-01-31 05:36] LABS: ALANINE AMINOTRANSFERASE 27 Units/L (12-78); ALBUMIN 3.1 g/dL (3.4-5.0); ALKALINE PHOSPHATASE 74 Units/L (46-116); ASPARTATE AMINO TRANSFERASE 23 Units/L (15-37); BLOOD UREA NITROGEN 16 mg/dL (7-18); CALCIUM 8.3 mg/dL (8.5-10.1); CARBON DIOXIDE 32.4 mmol/L (21-32); CHLORIDE 103 mmol/L (98-107); COR NA(FOR HYPERGLY) 140 mmol/L (136-145); CREATININE 1.32 mg/dL (0.70-1.30); GLUCOSE 121 mg/dL (65-99); POTASSIUM 3.9 mmol/L (3.5-5.1); SODIUM 139 mmol/L (136-145); TOTAL PROTEIN 7.2 g/dL (6.4-8.2); eGFR NON BLACK RACES 55 (>60)
[2024-01-31] MEDS: ASPIRIN EC 81 MG PO SCH (09:44)
[2024-01-31] MEDS: ARTIFICIAL TEARS DROPS AFFEYE PRN (09:47)
[2024-01-31 14:35] VITALS: BP 182/84; PULSE 63; RESP 16; TEMP 98.3; O2SAT 97
--- NOTE | 2024-02-04 16:43 | PCM.PROG ---
Progress Note Progress Note for Day of Date of Exam: 01/30/24 Subjective Subjective: Patient is a 78 year old white male patient who was an ER admission after presenting on the evening of 01/28/24 with complaints of diffuse weakness, shortness of breath, nausea and abdominal pain. He reported that he had a CVA about one week ago and was seen at [facility] ER. Workup included a CT of abdomen and pelvis that showed Large hiatal hernia, Mild bibasilar subsegmental atelectasis, Evidence of prior granulomatous disease, Mild prostate gland hypertrophy, Small bilateral fat containing inguinal hernias, and no acute abdominal or pelvic pathology. Initial labs: wbc 8.0, hgb 13.1, bun 16/creatinine 1.32, BNP elevated at 146. We obtained records from [facility] where he had an echocardiogram on 01/17/24 with EF of 65-70%.This morning he had a chest xray that showed cardiomegaly. AM labs: wbc 8.0, hgb 13.1, bun 19/creatinine 1.29. Past Medical Family Social History Allergies: Allergies No Known Allergies Allergy (Verified 01/28/24 19:39) Physical Exam Oriented: Normal Eyes: Normal Nose: Normal Throat: Dry Respiratory: Diminished Cardiovascular: Normal Auscultation: Bowel Sounds: Decreased Tenderness: Epigastric and Mild Musculoskeletal: Motor Deficit Psychiatric: Normal Mood Description: Calm Speech Pattern: Clear Laboratory and Diagnostics 01/31/24 04:54 01/31/24 04:54 Labs: 01/29/24 17:35 Urine,Clean Catch Urine Culture - Final Laboratory WBC 10.0 X10^3/uL (3.6-10.0) 01/31/24 04:54 RBC 4.66 X10^6/uL (4.7-6.0) L 01/31/24 04:54 Hgb 14.0 g/dL (13.5-18.0) 01/31/24 04:54 Hct 41.5 % (42.0-54.0) L 01/31/24 04:54 MCV 89.2 fL (80.0-100.0) 01/31/24 04:54 MCH 30.0 pg (27.0-34.0) 01/31/24 04:54 MCHC 33.6 g/dL (33.0-35.0) 01/31/24 04:54 RDW 14.1 % (11.6-16.5) 01/31/24 04:54 Plt Count 195 X10^3/uL (150.0-450.0) 01/31/24 04:54 MPV 9.0 fL (7.4-11.0) 01/31/24 04:54 Neut % (Auto) 55.5 % (42.0-75.0) 01/31/24 04:54 Lymph % (Auto) 27.1 % (21.0-51.0) 01/31/24 04:54 [place] % (Auto) 11.8 % (0.0-13.0) 01/31/24 04:54 Eos % (Auto) 5.0 % (0.9-2.9) H 01/31/24 04:54 Baso % (Auto) 0.6 % (0.2-1.0) 01/31/24 04:54 Neut # (Auto) 5.5 x10^3/uL (2.2-4.8) H 01/31/24 04:54 Lymph # (Auto) 2.7 X10^3/uL (1.3-2.9) 01/31/24 04:54 [place] # (Auto) 1.2 x10^3/uL (0.3-0.8) H 01/31/24 04:54 Eos # (Auto) 0.5 x10^3/uL (0.0-0.2) H 01/31/24 04:54 Baso # (Auto) 0.1 X10^3/uL (0.0-0.1) 01/31/24 04:54 Absolute Nucleated RBC 0.0 /100WBC 01/31/24 04:54 PT 13.6 SECONDS (11.8-14.3) 01/28/24 20:00 INR Target Range - 01/28/24 20:00 INR 1.06 (0.8-1.3) 01/28/24 20:00 APTT 27.6 SECONDS (22.9-36.5) 01/28/24 20:00 PTT Comment - 01/28/24 20:00 D-Dimer 0.33 ug/ml (0.0-0.57) 01/28/24 20:00 Sodium 139 mmol/L (136-145) 01/31/24 04:54 Corrected Sodium 140 mmol/L (136-145) 01/31/24 04:54 Potassium 3.9 mmol/L (3.5-5.1) 01/31/24 04:54 Chloride 103 mmol/L (98-107) 01/31/24 04:54 Carbon Dioxide 32.4 mmol/L (21-32) H 01/31/24 04:54 BUN 16 mg/dL (7-18) 01/31/24 04:54 Creatinine 1.32 mg/dL (0.70-1.30) H 01/31/24 04:54 Est GFR (MDRD) Af Amer > 60 (>60) 01/31/24 04:54 Est GFR (MDRD) Non-Af 55 (>60) L 01/31/24 04:54 Glucose 121 mg/dL (65-99) H 01/31/24 04:54 Calcium 8.3 mg/dL (8.5-10.1) L 01/31/24 04:54 Corrected Calcium 9.0 mg/dL (8.5-10.1) 01/31/24 04:54 Magnesium 2.0 mg/dL (2.0-2.9) 01/30/24 04:23 Total Bilirubin 0.30 mg/dL (0.2-1.0) 01/31/24 04:54 AST 23 Units/L (15-37) 01/31/24 04:54 ALT 27 Units/L (12-78) 01/31/24 04:54 Alkaline Phosphatase 74 Units/L (46-116) 01/31/24 04:54 Creatine Kinase 73 Units/L (39-308) 01/28/24 20:00 Troponin I High Sens 8.3 ng/L (4.0-60.0) 01/28/24 20:00 B-Natriuretic Peptide 146 pg/mL (0-79) H 01/28/24 20:00 Total Protein 7.2 g/dL (6.4-8.2) 01/31/24 04:54 Albumin 3.1 g/dL (3.4-5.0) L 01/31/24 04:54 Globulin 4.1 g/dL (2.5-4.5) 01/31/24 04:54 Albumin/Globulin Ratio 0.8 Ratio (1.1-2.1) L 01/31/24 04:54 Triglycerides 131 mg/dL (0-150) 01/30/24 04:23 Cholesterol 115 mg/dL (0-200) 01/30/24 04:23 LDL Cholesterol, Calc 50 mg/dL (0-100) 01/30/24 04:23 HDL Cholesterol 39 mg/dL (40-60) L 01/30/24 04:23 Cholesterol/HDL Ratio 2.9 (0.0-5.0) 01/30/24 04:23 Specimen Type Clean catch urine 01/28/24 22:52 Urine Color Yellow (YELLOW) 01/28/24 22:52 Urine Appearance Clear (CLEAR) 01/28/24 22:52 Urine pH 6.0 (5.0 - 8.0) 01/28/24 22:52 Ur Specific [place] 1.015 (1.000-1.030) 01/28/24 22:52 Urine Protein Negative (NEGATIVE) 01/28/24 22:52 Urine Glucose (UA) Negative (NEGATIVE) 01/28/24 22:52 Urine Ketones Negative (NEGATIVE) 01/28/24 22:52 Urine Blood Negative (NEGATIVE) 01/28/24 22:52 Urine Nitrite Negative (NEGATIVE) 01/28/24 22:52 Urine Bilirubin Negative (NEGATIVE) 01/28/24 22:52 Urine Urobilinogen Normal (NORMAL) 01/28/24 22:52 Ur Leukocyte Esterase 1+ (NEGATIVE) 01/28/24 22:52 Urine RBC None seen /HPF (0-3) 01/28/24 22:52 Urine WBC 0-2 /HPF (0-5) 01/28/24 22:52 Ur Squamous Epith Cells Rare /HPF (NEGATIVE) 01/28/24 22:52 Urine Bacteria Negative /HPF (NEGATIVE) 01/28/24 22:52 Ur Culture Indicated? No/not indicated 01/28/24 22:52 Plan (1) Weakness generalized: Status: Acute Plan: start IV lasix, obtain CT head, CTA carotids. (2) Nausea & vomiting: Status: Acute (3) Acute dehydration: Status: Acute (4) Hyperlipidemia: Status: Acute (5) History of CVA (cerebrovascular accident): Status: Acute
== END 2024-01-31 14:30 | disposition home health service (06) ==
LOC: ER 18:58 → ICU 18:58
PROVIDERS: ADMIT Internal Medicine; ATTEND Internal Medicine
DX: Z79.01 Long term (current) use of anticoagulants; E86.0 Dehydration; N40.0 Benign prostatic hyperplasia without lower urinary tract symptoms; R10.84 Generalized abdominal pain; R11.2 Nausea with vomiting, unspecified; R06.02 Shortness of breath; K59.09 Other constipation; Z86.73 Personal history of transient ischemic attack (TIA), and cerebral infarction without residual deficits; K44.9 Diaphragmatic hernia without obstruction or gangrene; R26.89 Other abnormalities of gait and mobility; E78.5 Hyperlipidemia, unspecified; R53.1 Weakness

== ENCOUNTER 2024-08-17 17:02 | Inpatient (IN) ==
--- NOTE | 2024-08-17 17:13 | DR.GENAD ---
HPI Time Seen Time Seen by Provider: 08/17/24 17:13 HPI Comment HPI Comment: 79 y/o s/p acute cva rt temporal lobe 08/11/24 discharged yesterday comes back in today c/o "weakness"; says he woke this morning and "felt like I felt before I had my stroke"; he was weak and could hardly walk but was able to get on his four-stone and go to neighbor's house this afternoon; "I can't explain how I feel but I just don't feel good"; he has dizziness which is at baseline and denies headache, cp, sob, abd pain, n/v/d, fevers and chills. PMH PMH Past Medical History: CVA, Dyslipidemia, Hypertension and Hypothyroidism Past Surgical History: No Family History Family Medical History: Cancer, [place] and Coronary Artery Disease Social History Do you use any recreational Drugs:: No ROS Review of Systems Constitutional: See HPI and Malaise Eyes: No Symptoms Reported ENTM: No Symptoms Reported Respiratoy: No Symptoms Reported Cardiovascular: No Symptoms Reported Gastrointestinal/Abdominal: No Symptoms Reported Genitourinary: No Symptoms Reported Neurological: See HPI and Dizziness; negative Emotional Problems or Seizure Musculoskeletal: See HPI Integumentary: No Symptoms Reported Hematologic/Lymphatic: No Symptoms Reported Endocrine: No Symptoms Reported Psychiatric: No Symptoms Reported PE Vital Signs Vitals: Vital Signs Temperature 98.1 F Pulse Rate 58 Pulse Rate 62 Pulse Rate 59 Pulse Rate 61 Pulse Rate 60 Pulse Rate 64 Pulse Rate 65 Pulse Rate 62 Respiratory Rate 17 Respiratory Rate 16 Respiratory Rate 19 Respiratory Rate 11 Respiratory Rate 26 Respiratory Rate 20 Respiratory Rate 17 Blood Pressure 136/62 Blood Pressure 154/73 Blood Pressure 175/77 Blood Pressure 173/83 O2 Sat by Pulse Oximetry 100 O2 Sat by Pulse Oximetry 100 O2 Sat by Pulse Oximetry 100 O2 Sat by Pulse Oximetry 100 O2 Sat by Pulse Oximetry 100 O2 Sat by Pulse Oximetry 99 O2 Sat by Pulse Oximetry 99 O2 Sat by Pulse Oximetry 100 General Limitations: No Limitations General Appearance: Alert and In No Apparent Distress Head Head Exam: Normal Inspection Eyes Eye exam: Normal Appearance Neck Neck Exam: Normal Inspection Chest Chest Inspection: Normal Inspection Respiratory Respiratory Exam: Normal Lung Sounds Bilat Respiratory Exam: Bilateral: Clear to Auscultation Cardiovascular Cardiovascular Exam: Regular Rate and Normal Rhythm Abdominal Exam Abdominal Exam: Normal Inspection, Normal Bowel Sounds and Soft Extremities Extremities Exam: Normal Inspection Back Back Exam: Normal Inspection Neurologic Neurological Exam: Alert and Oriented X3 Psychiatric Psychiatric Exam: Other (seems a little confused at times, looses train of thought) Skin Skin Exam: Warm, Dry, Intact and Normal Color COURSE Consultation Call Returned: 18:55 (telemedicine) Consultation Comments: Dr Anderson (telemedicine); nonspecific findings but ct suggestive; admit with mri in am; consider outpt eeg Dr Ortiz accepts admission Critical Care Notes Total Time (mins): 30 Critical Diagnosis: evolving cva Critical Interventions: telemedicine, admission, medical mgmt ROR Labs Reviewed Laboratory Results Reviewed?: Yes 08/19/24 04:50 08/19/24 04:50 Laboratory: WBC 8.7 X10^3/uL (3.6-10.0) 08/17/24 17:26 RBC 4.71 X10^6/uL (4.7-6.0) 08/17/24 17:26 Hgb 14.3 g/dL (13.5-18.0) 08/17/24 17:26 Hct 41.5 % (42.0-54.0) L 08/17/24 17:26 MCV 88.1 fL (80.0-100.0) 08/17/24 17:26 MCH 30.3 pg (27.0-34.0) 08/17/24 17:26 MCHC 34.4 g/dL (33.0-35.0) 08/17/24 17:26 RDW 13.8 % (11.6-16.5) 08/17/24 17: Plt Count 173 X10^3/uL (150.0-450.0) 08/17/24 17:26 MPV 8.2 fL (7.4-11.0) 08/17/24 17:26 Neut % (Auto) 58.4 % (42.0-75.0) 08/17/24 17: Lymph % (Auto) 26.4 % (21.0-51.0) 08/17/24 17:26 [place] % (Auto) 10.6 % (0.0-13.0) 08/17/24 17: Eos % (Auto) 3.9 % (0.9-2.9) H 08/17/24 17:26 Baso % (Auto) 0.7 % (0.2-1.0) 08/17/24 17:26 Neut # (Auto) 5.1 x10^3/uL (2.2-4.8) H 08/17/24 17:26 Lymph # (Auto) 2.3 X10^3/uL (1.3-2.9) 08/17/24 17:26 [place] # (Auto) 0.9 x10^3/uL (0.3-0.8) H 08/17/24 17:26 Eos # (Auto) 0.3 x10^3/uL (0.0-0.2) H 08/17/24 17:26 Baso # (Auto) 0.1 X10^3/uL (0.0-0.1) 08/17/24 17:26 Absolute Nucleated RBC 0.1 /100WBC 08/17/24 17:26 Sodium 136 mmol/L (136-145) 08/17/24 17:26 Corrected Sodium 137 mmol/L (136-145) 08/17/24 17:26 Potassium 4.4 mmol/L (3.5-5.1) 08/17/24 17:26 Chloride 99 mmol/L (98-107) 08/17/24 17:26 Carbon Dioxide 28.9 mmol/L (21-32) 08/17/24 17:26 BUN 16 mg/dL (7-18) 08/17/24 17:26 Creatinine 1.47 mg/dL (0.70-1.30) H 08/17/24 17:26 Est GFR (MDRD) Af Amer 59 (>60) 08/17/24 17:26 Est GFR (MDRD) Non-Af 49 (>60) L 08/17/24 17:26 Glucose 134 mg/dL (65-99) H 08/17/24 17:26 Calcium 8.6 mg/dL (8.5-10.1) 08/17/24 17:26 Corrected Calcium TNP 08/17/24 17:26 Total Bilirubin 0.50 mg/dL (0.2-1.0) 08/17/24 17:26 AST 23 Units/L (15-37) 08/17/24 17:26 ALT 28 Units/L (12-78) 08/17/24 17:26 Alkaline Phosphatase 65 Units/L (46-116) 08/17/24 17:26 Total Protein 7.7 g/dL (6.4-8.2) 08/17/24 17:26 Albumin 3.7 g/dL (3.4-5.0) 08/17/24 17:26 Globulin 4.0 g/dL (2.5-4.5) 08/17/24 17:26 Albumin/Globulin Ratio 0.9 Ratio (1.1-2.1) L 08/17/24 17:26 Specimen Type Clean catch urine 08/17/24 18:58 Urine Color Pale yellow (YELLOW) 08/17/24 18:58 Urine Appearance Clear (CLEAR) 08/17/24 18:58 Urine pH 6.0 (5.0 - 8.0) 08/17/24 18:58 Ur Specific [place] 1.020 (1.000-1.030) 08/17/24 18:58 Urine Protein 1+ (NEGATIVE) 08/17/24 18:58 Urine Glucose (UA) Negative (NEGATIVE) 08/17/24 18:58 Urine Ketones Negative (NEGATIVE) 08/17/24 18:58 Urine Blood Negative (NEGATIVE) 08/17/24 18:58 Urine Nitrite Negative (NEGATIVE) 08/17/24 18:58 Urine Bilirubin Negative (NEGATIVE) 08/17/24 18:58 Urine Urobilinogen Normal (NORMAL) 08/17/24 18:58 Ur Leukocyte Esterase Negative (NEGATIVE) 08/17/24 18:58 Urine RBC 0-2 /HPF (0-3) 08/17/24 18:58 Urine WBC 0-2 /HPF (0-5) 08/17/24 18:58 Ur Squamous Epith Cells Negative /HPF (NEGATIVE) 08/17/24 18:58 Urine Bacteria Trace /HPF (NEGATIVE) 08/17/24 18:58 Urine Mucus Few /HPF (NEGATIVE) 08/17/24 18:58 Ur Culture Indicated? No/not indicated 08/17/24 18:58 XRAY XRAY Interpreted by: Radiologist X-ray Results: ct brain w/o: Evolving changes of right temporoparietal infarct with possible increase in size since the earlier study. 08/12/24 cta: 1. Occlusion in the proximal right vertebral artery. 2. Occlusion in the right inferior cerebellar artery with acute infarct in the right ce rebellar hemisphere 3. Occlusion in the inferior segment of the right [employer] WE[employer] with acute infarct in the right occipital lobe. 4. These findings could be confirmed MRI. 08/11/24 brain mri: Small focus of restricted diffusion within the right medial temporal lobe corresponding to an acute ischemic infarction without hemorrhagic transformation. Multiple additional chronic infarction sites, as detailed above. Generalized age-related cortical volume loss and degenerative white matter signal changes of the supratentorial brain with commensurate ventricular dilatation. Opioid Opioid Risk Tool Age (Michael box if 16-45): No History of Preadolescent Sexual Abuse: No Total: 0 Total Score Risk Category: Low Risk Copyright: Ian ALTAMIRANO predicting aberrant behaviors Discharge Plan Diagnosis Discharge Problem: Acute CVA (cerebrovascular accident), History of CVA (cerebrovascular accident) Discharge Plan Patient Disposition: 09 ADMITTED INPATIENT Condition: Stable
[2024-08-17 17:31] LABS: BASOPHILS # (AUTO) 0.1 X10^3/uL (0.0-0.1); BASOPHILS % (AUTO) 0.7 % (0.2-1.0); EOSINOPHILS # (AUTO) 0.3 x10^3/uL (0.0-0.2); EOSINOPHILS % (AUTO) 3.9 % (0.9-2.9); HEMATOCRIT 41.5 % (42.0-54.0); HEMOGLOBIN 14.3 g/dL (13.5-18.0); LYMPHOCYTES # (AUTO) 2.3 X10^3/uL (1.3-2.9); LYMPHOCYTES % (AUTO) 26.4 % (21.0-51.0); MEAN CORPUSCULAR HEMOGLOBIN 30.3 pg (27.0-34.0); MEAN CORPUSCULAR HGB CONC 34.4 g/dL (33.0-35.0); MEAN CORPUSCULAR VOLUME 88.1 fL (80.0-100.0); MEAN PLATELET VOLUME 8.2 fL (7.4-11.0); MONOCYTES # (AUTO) 0.9 x10^3/uL (0.3-0.8); MONOCYTES % (AUTO) 10.6 % (0.0-13.0); NEUTROPHILS # (AUTO) 5.1 x10^3/uL (2.2-4.8); NEUTROPHILS % (AUTO) 58.4 % (42.0-75.0); PLATELET COUNT 173 X10^3/uL (150.0-450.0); RED BLOOD COUNT 4.71 X10^6/uL (4.7-6.0); RED CELL DISTRIBUTION WIDTH 13.8 % (11.6-16.5); WHITE BLOOD COUNT 8.7 X10^3/uL (3.6-10.0)
[2024-08-17 17:44] LABS: ALANINE AMINOTRANSFERASE 28 Units/L (12-78); ALBUMIN 3.7 g/dL (3.4-5.0); ALKALINE PHOSPHATASE 65 Units/L (46-116); ASPARTATE AMINO TRANSFERASE 23 Units/L (15-37); BLOOD UREA NITROGEN 16 mg/dL (7-18); CALCIUM 8.6 mg/dL (8.5-10.1); CARBON DIOXIDE 28.9 mmol/L (21-32); CHLORIDE 99 mmol/L (98-107); COR NA(FOR HYPERGLY) 137 mmol/L (136-145); CREATININE 1.47 mg/dL (0.70-1.30); GLUCOSE 134 mg/dL (65-99); POTASSIUM 4.4 mmol/L (3.5-5.1); SODIUM 136 mmol/L (136-145); TOTAL PROTEIN 7.7 g/dL (6.4-8.2); eGFR NON BLACK RACES 49 (>60)
--- NOTE | 2024-08-17 18:23 | CT ---
EXAM: BRAIN W/O CON HISTORY: weakness s/p cva; COMPARISON: 08/11/2024. TECHNIQUE: Nonenhanced spiral CT imaging was performed through the head and axial, coronal, and sagittal CT imag es were generated. FINDINGS: There is prominence of the ventricles and sulci. There is hypodensity in the periventricular and sub cortical white matter compatible with small-vessel ischemic disease. There is hypodensity in the rig ht temporoparietal lobe compatible with an evolving infarct. The area of involvement as appear to be increased in size compared to the MRI from 08/11/2024. There is stable encephalomalacia in the righ t cerebellar hemisphere compatible with old infarct. IMPRESSION: Evolving changes of right temporoparietal infarct with possible increase in size since the earlier st udy. THIS IS AN ELECTRONICALLY VERIFIED FINAL REPORT 08/17/2024 6:20 PM - Electronically signed by Shravan Martinez MD
[2024-08-17 19:08] LABS: BILIRUBIN,URINE NEGATIVE (NEGATIVE); BLOOD/HEMOGLOBIN,URINE NEGATIVE (NEGATIVE); GLUCOSE, URINE NEGATIVE (NEGATIVE); KETONES,URINE NEGATIVE (NEGATIVE); LEUKOCYTE ESTERASE ,URINE NEGATIVE (NEGATIVE); NITRITES,URINE NEGATIVE (NEGATIVE); PROTEIN,URINE 1+ (NEGATIVE); UROBILINOGEN,URINE NORMAL (NORMAL)
[2024-08-17 19:09] LABS: APPEARANCE,URINE CLEAR (CLEAR); COLOR,URINE PALE YELLOW (YELLOW)
[2024-08-17 19:16] LABS: BACTERIA,URINE TRACE /HPF (NEGATIVE); RBC,URINE 0-2 /HPF (0-3); SQUAMOUS EPITHELIAL CELL,UR NEGATIVE /HPF (NEGATIVE)
--- NOTE | 2024-08-17 19:43 | TELESTROKE ---
[facility] Consult Date of Consult Date of Exam: 08/17/24 Time of Arrival to the ED: 17:02 Allergies Allergies Allergy/AdvReac Type Severity Reaction Status Date / Time No Known Allergies Allergy Verified 01/28/24 19:39 Vital Signs Vital Signs: Temp Pulse Resp BP Pulse Ox O2 Del Method 08/17/24 18:30 136/62 08/17/24 18:30 58 L 17 100 08/17/24 18:15 62 16 100 08/17/24 18:00 154/73 08/17/24 18:00 59 L 19 100 08/17/24 17:45 61 100 08/17/24 17:30 175/77 08/17/24 17:30 60 11 L 100 08/17/24 17:15 64 26 H 99 08/17/24 17:13 62 17 100 08/17/24 17:14 98.1 F 65 20 173/83 99 Room Air History of Present Illness History of Present Illness: [facility] Consult Services Stat Consult Patient Name:Ivan Martin Date of :1945 Identification Number: Date of Service:08/17/2024 18:52:37 Diagnosis:I63.89 - Cerebrovascular accident (CVA) due to other mechanism ([facility]) Impression 79 y/o M with HTN, HLD, recent diagnosis of ischemic stroke in right medial temporal region on August 11, 2024, with associated right BODY SANDER distal branch occlusion (and notable right vertebral artery disease/occlusion as well), now presents back to hospital with increased generalized weakness and feeling "out of it" since waking up this morning. On examination, NIHSS is 0. He is somewhat inattentive, tangential and restless. CT head shows more pronounced ischemic changes in right medial temporal region, which I suspect is natural evolution of previous stroke. My suspicion is that patient is experiencing fluctuating symptoms of his recent stroke. Differential does include new stroke, focal seizure, or metabolic/infectious encephalopathy. Recommend admission for yared toring and further evaluation. Recommendations: Our recommendations are outlined below. Diagnostic Studies :MRI Head without contrast Holter/Loop Recorder as outpatient with cardiology follow up -outpatient EEG Laboratory Studies :TSH Antithrombic Medications :Initiate dual antiplatelet therapy with Aspirin 81 mg daily and Clopidogrel 75 mg daily Nursing Recommendations :IV Fluids, avoid dextrose containing fluids, Maintain euglycemia Neuro checks q4 hrs x 24 hrs and then per shift Continue with Telemetry DVT Prophylaxis :Choice of Primary Team Dispositions :Neurology will follow Miscellaneous :metabolic/infectious work-up; would check TSH Advanced Imaging:Advanced Imaging Deferred because: Non-disabling symptoms as verified by the patient; no cortical signs so not consistent with LVO Metrics: Dispatch Time: 08/17/2024 18:52:37 Callback Response Time: 08/17/2024 18:53:05 Primary Provider Notified of Diagnostic Impression and Management Plan on: 08/17/2024 19:36:39 ImagingCT head w/o contrast: more pronounced changes in right medial temporal region, location of recent stroke LabsCBC: normal BMP: 137/4.4/99/28,9/16/1.47/134 LFT's: normal Chief Complaint: felt out of it earlier today, generalized weakness History of Present Illness:Patient is a 79 year old Male. Patient able to provide collateral information, chart review also performed. Patient originally presented to hospital on 08/11 with acute onset of memory prob lems. He was found to have NIHSS 0. Admitted for further work-up, imaging of brain revealed acute infarct in right medial temporal lobe. CTA head/neck showed complete right vertebral artery occlusion, right PICA occlusion,, and right BODY SANDER inferior segment occlusion. MRI confirmed small stroke within right medial temporal lobe. Patient was maintained on aspirin and Plavix, discharged on 08/13/24. Reports that since discharge, he has not been feeling like himself, more tired and overall weaker, and having a hard time living on his own. This morning, when he woke up, he felt even worse, felt "out of it", increased generalized weakness, and had to walk to a nearby neighbor's house to obtain help. Taken back to hospital. Denies any new focal neurological deficits. CT head in the ER shows possible progression of the recent right medial temporal lobe infarct. Past Medical History: Hypertension Hyperlipidemia Stroke Other PMH: hypothyroidism Medications: No Anticoagulant use Antiplatelet use:Yesaspirin 81 mg daily; Plavix 75 mg daily Reviewed EMR for current medications Allergies: Reviewed Social History: Drug Use: No Family History: There is no family history of premature cerebrovascular disease pertinent to this consultation ROS : 14 Points Review of Systems was performed and was negative except mentioned in HPI. Past Surgical History: There Is No Surgical History Contributory To Todays Visit Examination: BP(136/62),Pulse(58), 1A: Level of Consciousness - Alert; keenly responsive+ 0 1B: Ask Month and Age - Both Questions Right+ 0 1C: Blink Eyes & Squeeze Hands - Performs Both Tasks+ 0 2: Test Horizontal Extraocular Movements - Normal+ 0 3: Test Visual Zamora - No Visual Loss+ 0 4: Test Facial Palsy (Use Grimace if Obtunded) - Normal symmetry+ 0 5A: Test Left Arm Motor Drift - No Drift for 10 Seconds+ 0 5B: Test Right Arm Motor Drift - No Drift for 10 Seconds+ 0 6A: Test Left Leg Motor Drift - No Drift for 5 Seconds+ 0 6B: Test Right Leg Motor Drift - No Drift for 5 Seconds+ 0 7: Test Limb Ataxia (FNF/Heel-Siddiqui) - No Ataxia+ 0 8: Test Sensation - Normal; No sensory loss+ 0 9: Test Language/Aphasia - Normal; No aphasia+ 0 10: Test Dysarthria - Normal+ 0 11: Test Extinction/Inattention - No abnormality+ 0 NIHSS Score:0 Spoke with :Dr. Kuhn This consult was conducted in real time using interactive audio and video technology. Patient was informed of the technology being used for this visit and agreed to proceed. Patient located in hospital and provider located at home/office setting. Patient is being evaluated for possible acute neurologic impairment and high probability of imminent or life - threatening deterioration.I spent total of 35 minutes providing care to this patient, including time for face to face visit via telemedicine, review of medical records, imaging studies and discussion of findings with providers, the patient and / or family. Dr Clem Anderson [facility] For Inpatient follow-up with [facility] physician please call [facility] at . As we are not an outpatient service for any post hospital discharge needs please contact the hospital for assistance. If you have any questions for the [facility] physicians or need to reconsult for clinical or diagnostic changes please contact us via [facility] at . Medical Decision Making 08/17/24 17:26 08/17/24 17:26 Labs: Laboratory Results - last 24 hr 08/17/24 08/17/24 17:26 18:58 WBC 8.7 RBC 4.71 Hgb 14.3 Hct 41.5 L MCV 88.1 MCH 30.3 MCHC 34.4 RDW 13.8 Plt Count 173 MPV 8.2 Neut % (Auto) 58.4 Lymph % (Auto) 26.4 [place] % (Auto) 10.6 Eos % (Auto) 3.9 H Baso % (Auto) 0.7 Neut # (Auto) 5.1 H Lymph # (Auto) 2.3 [place] # (Auto) 0.9 H Eos # (Auto) 0.3 H Baso # (Auto) 0.1 Absolute Nucleated RBC 0.1 Sodium 136 Corrected Sodium 137 Potassium 4.4 Chloride 99 Carbon Dioxide 28.9 BUN 16 Creatinine 1.47 H Est GFR (MDRD) Af Amer 59 Est GFR (MDRD) Non-Af 49 L Glucose 134 H Calcium 8.6 Corrected Calcium TNP Total Bilirubin 0.50 AST 23 ALT 28 Alkaline Phosphatase 65 Total Protein 7.7 Albumin 3.7 Globulin 4.0 Albumin/Globulin Ratio 0.9 L Specimen Type Clean catch urine Urine Color Pale yellow Urine Appearance Clear Urine pH 6.0 Ur Specific [place] 1.020 Urine Protein 1+ Urine Glucose (UA) Negative Urine Ketones Negative Urine Blood Negative Urine Nitrite Negative Urine Bilirubin Negative Urine Urobilinogen Normal Ur Leukocyte Esterase Negative Urine RBC 0-2 Urine WBC 0-2 Ur Squamous Epith Cells Negative Urine Bacteria Trace Urine Mucus Few Ur Culture Indicated? No/not indicated
[2024-08-17] MEDS: NS 1,000 ML IV 1,000 ML IV SCH (20:27)
[2024-08-17 21:59] VITALS: BMI 30.9
[2024-08-18 05:21] LABS: BASOPHILS % (AUTO) 0.6 % (0.2-1.0); EOSINOPHILS # (AUTO) 0.5 x10^3/uL (0.0-0.2); EOSINOPHILS % (AUTO) 6.5 % (0.9-2.9); HEMATOCRIT 40.4 % (42.0-54.0); HEMOGLOBIN 13.8 g/dL (13.5-18.0); LYMPHOCYTES # (AUTO) 1.9 X10^3/uL (1.3-2.9); LYMPHOCYTES % (AUTO) 26.3 % (21.0-51.0); MEAN CORPUSCULAR HEMOGLOBIN 29.9 pg (27.0-34.0); MEAN CORPUSCULAR HGB CONC 34.2 g/dL (33.0-35.0); MEAN CORPUSCULAR VOLUME 87.6 fL (80.0-100.0); MEAN PLATELET VOLUME 8.7 fL (7.4-11.0); MONOCYTES # (AUTO) 0.9 x10^3/uL (0.3-0.8); MONOCYTES % (AUTO) 11.8 % (0.0-13.0); NEUTROPHILS % (AUTO) 54.8 % (42.0-75.0); PLATELET COUNT 171 X10^3/uL (150.0-450.0); RED BLOOD COUNT 4.61 X10^6/uL (4.7-6.0); RED CELL DISTRIBUTION WIDTH 13.4 % (11.6-16.5); WHITE BLOOD COUNT 7.3 X10^3/uL (3.6-10.0)
[2024-08-18 05:28] LABS: ALANINE AMINOTRANSFERASE 26 Units/L (12-78); ALBUMIN 3.2 g/dL (3.4-5.0); ALKALINE PHOSPHATASE 60 Units/L (46-116); ASPARTATE AMINO TRANSFERASE 18 Units/L (15-37); BLOOD UREA NITROGEN 13 mg/dL (7-18); CALCIUM 8.4 mg/dL (8.5-10.1); CHLORIDE 102 mmol/L (98-107); COR NA(FOR HYPERGLY) 138 mmol/L (136-145); GLUCOSE 124 mg/dL (65-99); POTASSIUM 3.7 mmol/L (3.5-5.1); SODIUM 137 mmol/L (136-145); eGFR NON BLACK RACES > 60 (>60)
[2024-08-18] MEDS: CONSULT PHARMACY - POTASSIUM & MAGNESIUM XX SCH (05:50)
[2024-08-18] MEDS ORDERED: CONSULT PHARMACY - POTASSIUM & MAGNESIUM XX SCH (06:00)
[2024-08-18] MEDS ORDERED: MAG-OX TAB ONE (09:01)
[2024-08-18] MEDS: MAG-OX TAB PO SCH (09:30)
[2024-08-18] MEDS: K-DUR TAB 20 MEQ PO SCH (09:31)
[2024-08-18] MEDS: LOVENOX INJ 40 MG SYR SC SCH (10:10)
[2024-08-18] MEDS: CLARITIN PO SCH (14:02)
[2024-08-18] MEDS: ASPIRIN 81 MG CHEWTAB PO SCH (14:02)
[2024-08-18] MEDS: PLAVIX PO SCH (14:02)
[2024-08-18] MEDS: NORVASC TAB 10 MG PO SCH (14:02)
[2024-08-18] MEDS: CRESTOR TAB 10 MG PO SCH (20:20)
[2024-08-19 05:28] LABS: BASOPHILS % (AUTO) 0.5 % (0.2-1.0); EOSINOPHILS # (AUTO) 0.3 x10^3/uL (0.0-0.2); EOSINOPHILS % (AUTO) 3.3 % (0.9-2.9); HEMATOCRIT 41.6 % (42.0-54.0); HEMOGLOBIN 14.4 g/dL (13.5-18.0); LYMPHOCYTES # (AUTO) 1.5 X10^3/uL (1.3-2.9); LYMPHOCYTES % (AUTO) 15.4 % (21.0-51.0); MEAN CORPUSCULAR HEMOGLOBIN 30.2 pg (27.0-34.0); MEAN CORPUSCULAR HGB CONC 34.7 g/dL (33.0-35.0); MEAN PLATELET VOLUME 8.7 fL (7.4-11.0); MONOCYTES # (AUTO) 1.1 x10^3/uL (0.3-0.8); NEUTROPHILS % (AUTO) 69.8 % (42.0-75.0); PLATELET COUNT 172 X10^3/uL (150.0-450.0); RED BLOOD COUNT 4.78 X10^6/uL (4.7-6.0); RED CELL DISTRIBUTION WIDTH 13.7 % (11.6-16.5); WHITE BLOOD COUNT 10.1 X10^3/uL (3.6-10.0)
--- NOTE | 2024-08-19 05:31 | MRI ---
EXAM:BRAIN W/O CONHISTORY:EVOLVING CVA ;COMPARISON:08/17/2024, 08/12/2024, 08/11/2024TECHNIQUE:Multiplanar, multisequence MRI of the brain obtained without IV contrast.FINDINGS:Expected signal in the supratentorial structures and cerebral hemispheres. Developing diffusion restriction in the right temporoparietal region in the right occipital lobe. Scattered T2/FLAIR hyperintensities in the periventricular and subcortical white matter most consistent with small vessel ischemic changes. Global volume loss. No evidence of acute intracranial hemorrhage. Right cerebellar encephalomalacia.The midline structures and brainstem and as well as structures in the posterior fossa demonstrate no significant abnormality.The ventricles appear symmetric and nondilated. No hydrocephalus.The calvarium appears intact.The visualized extracranial structures demonstrate no acute process.IMPRESSION:Findings concerning for developing acute infarct in the right frontotemporal and occipital regions. No evidence of hemorrhagic transformation.THIS IS AN ELECTRONICALLY VERIFIED FINAL REPORT08/19/2024 5:28 AM - Electronically signed by Prem Summers MD
[2024-08-19 05:38] LABS: ALANINE AMINOTRANSFERASE 29 Units/L (12-78); ALBUMIN 3.3 g/dL (3.4-5.0); ALKALINE PHOSPHATASE 62 Units/L (46-116); ASPARTATE AMINO TRANSFERASE 19 Units/L (15-37); BLOOD UREA NITROGEN 12 mg/dL (7-18); CALCIUM 8.4 mg/dL (8.5-10.1); CARBON DIOXIDE 29.4 mmol/L (21-32); CHLORIDE 99 mmol/L (98-107); COR NA(FOR HYPERGLY) 134 mmol/L (136-145); CREATININE 1.24 mg/dL (0.70-1.30); GLUCOSE 118 mg/dL (65-99); MAGNESIUM 2.1 mg/dL (2.0-2.9); POTASSIUM 4.1 mmol/L (3.5-5.1); SODIUM 134 mmol/L (136-145); TOTAL PROTEIN 7.2 g/dL (6.4-8.2); eGFR NON BLACK RACES 59 (>60)
[2024-08-19] MEDS ORDERED: SYNTHROID 88 mcg TAB PO SCH (06:30)
--- NOTE | 2024-08-19 16:07 | RAD ---
EXAM:CHEST, 1 VIEWHISTORY:R/O TB/ SNF PLACEMENT ;COMPARISON:08/11/2024FINDINGS:The trachea is midline. The cardiac silhouette is enlarged with a tortuous thoracic aorta . The lungs are clear without focal infiltrate or effusion. The bony thorax is unremarkable.IMPRESSION:No acute cardiopulmonary disease.THIS IS AN ELECTRONICALLY VERIFIED FINAL REPORT08/19/2024 4:04 PM - Electronically signed by Mariano Kirkland MD
[2024-08-20 05:28] LABS: BASOPHILS # (AUTO) 0.1 X10^3/uL (0.0-0.1); BASOPHILS % (AUTO) 0.4 % (0.2-1.0); EOSINOPHILS # (AUTO) 0.2 x10^3/uL (0.0-0.2); EOSINOPHILS % (AUTO) 1.9 % (0.9-2.9); HEMATOCRIT 41.8 % (42.0-54.0); HEMOGLOBIN 14.3 g/dL (13.5-18.0); LYMPHOCYTES # (AUTO) 1.4 X10^3/uL (1.3-2.9); LYMPHOCYTES % (AUTO) 12.4 % (21.0-51.0); MEAN CORPUSCULAR HEMOGLOBIN 29.9 pg (27.0-34.0); MEAN CORPUSCULAR HGB CONC 34.2 g/dL (33.0-35.0); MEAN CORPUSCULAR VOLUME 87.5 fL (80.0-100.0); MEAN PLATELET VOLUME 8.7 fL (7.4-11.0); MONOCYTES # (AUTO) 1.3 x10^3/uL (0.3-0.8); MONOCYTES % (AUTO) 11.4 % (0.0-13.0); NEUTROPHILS # (AUTO) 8.3 x10^3/uL (2.2-4.8); NEUTROPHILS % (AUTO) 73.9 % (42.0-75.0); PLATELET COUNT 163 X10^3/uL (150.0-450.0); RED BLOOD COUNT 4.78 X10^6/uL (4.7-6.0); RED CELL DISTRIBUTION WIDTH 13.4 % (11.6-16.5); WHITE BLOOD COUNT 11.2 X10^3/uL (3.6-10.0)
[2024-08-20 05:40] LABS: ALANINE AMINOTRANSFERASE 22 Units/L (12-78); ALBUMIN 3.1 g/dL (3.4-5.0); ALKALINE PHOSPHATASE 61 Units/L (46-116); ASPARTATE AMINO TRANSFERASE 14 Units/L (15-37); BLOOD UREA NITROGEN 15 mg/dL (7-18); CALCIUM 8.3 mg/dL (8.5-10.1); CARBON DIOXIDE 25.9 mmol/L (21-32); CHLORIDE 99 mmol/L (98-107); COR NA(FOR HYPERGLY) 132 mmol/L (136-145); CREATININE 1.26 mg/dL (0.70-1.30); GLUCOSE 120 mg/dL (65-99); POTASSIUM 4.1 mmol/L (3.5-5.1); SODIUM 132 mmol/L (136-145); eGFR NON BLACK RACES 58 (>60)
[2024-08-20] MEDS: THERMOTABS PO SCH (10:15)
[2024-08-21 05:14] LABS: BASOPHILS # (AUTO) 0.1 X10^3/uL (0.0-0.1); HEMATOCRIT 42.2 % (42.0-54.0); RED BLOOD COUNT 4.82 X10^6/uL (4.7-6.0)
[2024-08-21 05:24] LABS: BASOPHILS % (AUTO) 0.7 % (0.2-1.0); EOSINOPHILS # (AUTO) 0.3 x10^3/uL (0.0-0.2); EOSINOPHILS % (AUTO) 2.6 % (0.9-2.9); HEMOGLOBIN 14.5 g/dL (13.5-18.0); LYMPHOCYTES # (AUTO) 1.4 X10^3/uL (1.3-2.9); LYMPHOCYTES % (AUTO) 14.2 % (21.0-51.0); MEAN CORPUSCULAR HEMOGLOBIN 30.1 pg (27.0-34.0); MEAN CORPUSCULAR HGB CONC 34.4 g/dL (33.0-35.0); MEAN CORPUSCULAR VOLUME 87.5 fL (80.0-100.0); MEAN PLATELET VOLUME 8.8 fL (7.4-11.0); MONOCYTES # (AUTO) 1.5 x10^3/uL (0.3-0.8); MONOCYTES % (AUTO) 14.6 % (0.0-13.0); NEUTROPHILS # (AUTO) 6.8 x10^3/uL (2.2-4.8); NEUTROPHILS % (AUTO) 67.9 % (42.0-75.0); PLATELET COUNT 168 X10^3/uL (150.0-450.0); RED CELL DISTRIBUTION WIDTH 13.8 % (11.6-16.5)
[2024-08-21 05:34] LABS: ALANINE AMINOTRANSFERASE 22 Units/L (12-78); ALKALINE PHOSPHATASE 62 Units/L (46-116); ASPARTATE AMINO TRANSFERASE 17 Units/L (15-37); BLOOD UREA NITROGEN 17 mg/dL (7-18); CALCIUM 8.6 mg/dL (8.5-10.1); CARBON DIOXIDE 25.1 mmol/L (21-32); CHLORIDE 98 mmol/L (98-107); COR CA(FOR HYPOALB) 9.4 mg/dL (8.5-10.1); GLUCOSE 96 mg/dL (65-99); POTASSIUM 4.3 mmol/L (3.5-5.1); SODIUM 133 mmol/L (136-145); TOTAL PROTEIN 7.2 g/dL (6.4-8.2); eGFR NON BLACK RACES 52 (>60)
[2024-08-22 04:21] VITALS: TEMP 98.8
[2024-08-22 05:58] LABS: BASOPHILS % (AUTO) 0.4 % (0.2-1.0); EOSINOPHILS # (AUTO) 0.4 x10^3/uL (0.0-0.2); EOSINOPHILS % (AUTO) 3.4 % (0.9-2.9); HEMATOCRIT 41.7 % (42.0-54.0); HEMOGLOBIN 14.4 g/dL (13.5-18.0); LYMPHOCYTES # (AUTO) 2.1 X10^3/uL (1.3-2.9); LYMPHOCYTES % (AUTO) 19.5 % (21.0-51.0); MEAN CORPUSCULAR HEMOGLOBIN 30.2 pg (27.0-34.0); MEAN CORPUSCULAR HGB CONC 34.7 g/dL (33.0-35.0); MEAN PLATELET VOLUME 8.4 fL (7.4-11.0); MONOCYTES # (AUTO) 1.7 x10^3/uL (0.3-0.8); MONOCYTES % (AUTO) 16.2 % (0.0-13.0); NEUTROPHILS # (AUTO) 6.4 x10^3/uL (2.2-4.8); NEUTROPHILS % (AUTO) 60.5 % (42.0-75.0); PLATELET COUNT 185 X10^3/uL (150.0-450.0); RED BLOOD COUNT 4.79 X10^6/uL (4.7-6.0); RED CELL DISTRIBUTION WIDTH 13.7 % (11.6-16.5); WHITE BLOOD COUNT 10.6 X10^3/uL (3.6-10.0)
[2024-08-22 06:14] LABS: ALBUMIN 2.9 g/dL (3.4-5.0); ASPARTATE AMINO TRANSFERASE 24 Units/L (15-37); BLOOD UREA NITROGEN 25 mg/dL (7-18); CALCIUM 8.5 mg/dL (8.5-10.1); CARBON DIOXIDE 23.6 mmol/L (21-32); CHLORIDE 102 mmol/L (98-107); COR CA(FOR HYPOALB) 9.4 mg/dL (8.5-10.1); CREATININE 1.43 mg/dL (0.70-1.30); GLUCOSE 109 mg/dL (65-99); POTASSIUM 4.1 mmol/L (3.5-5.1); SODIUM 135 mmol/L (136-145); eGFR NON BLACK RACES 50 (>60)
[2024-08-22 06:31] LABS: ALANINE AMINOTRANSFERASE 25 Units/L (12-78); ALKALINE PHOSPHATASE 62 Units/L (46-116); TOTAL PROTEIN 7.1 g/dL (6.4-8.2)
[2024-08-22 11:31] VITALS: BP 134/61; PULSE 71; RESP 14; O2SAT 93
== END 2024-08-22 11:40 | DRG 66 ==
LOC: ER 17:02 → ICU 17:02 → OBSVTOIN 20:01 → ICU 20:50
PROVIDERS: ADMIT Obstetrics & Gynecology Obstetrics; ATTEND Obstetrics & Gynecology Obstetrics
DX: R26.89 Other abnormalities of gait and mobility; R53.1 Weakness; E03.8 Other specified hypothyroidism; E78.5 Hyperlipidemia, unspecified; E83.42 Hypomagnesemia; I10 Essential (primary) hypertension; I63.89 Other cerebral infarction; E11.65 Type 2 diabetes mellitus with hyperglycemia; R55 Syncope and collapse